=== PATIENT | female | born 1955 | race Caucasian/White ===

== ENCOUNTER 2019-11-07 07:30 | Day surgery (SDC) | payer MEDICAID ==
[~2019-11-07] VITALS: Ht 147.3 cm; Wt 79.4 kg
[2019-11-07] MEDS ORDERED: OXYCODONE/ACETAMINOPHEN 5-325 TABLET PO PRN (10:45)
[2019-11-07] MEDS ORDERED: HYDROcodone/ACETAMIN 5-325 MG TAB (NORCO/ VICODIN) PO PRN (10:45)
[2019-11-07] MEDS ORDERED: IBUPROFEN 800 MG TABLET PO PRN (10:45)
[2019-11-07] MEDS ORDERED: HYDROmorphone 2 MG TAB PO PRN (10:45)
[2019-11-07] MEDS ORDERED: SIMETHICONE 80 MG TAB.CHEW PO PRN (10:45)
[2019-11-07] MEDS ORDERED: ONDANSETRON HCL 4 MG/2 ML VIAL IVP PRN (12:30)
[2019-11-07] MEDS ORDERED: LR 1,000 ML IV.SOLN IV ONE (12:40)
[2019-11-07] MEDS ORDERED: DESFLURANE 15 MIN GAS INH ONE (12:40)
[2019-11-07] MEDS ORDERED: SUCCINYLCHOLINE CHLORIDE 20 MG/ML(QUELICIN) ONE (12:40)
[2019-11-07] MEDS ORDERED: fentaNYL CITRATE 250 MCG/5 ML AMP IV ONE (12:40)
[2019-11-07] MEDS ORDERED: KETOROLAC TROMETHAMINE 30 MG VIAL ONE (12:40)
[2019-11-07] MEDS ORDERED: DEXAMETHASONE SOD PHOSPHATE 4 MG/ML VIAL ONE (12:40)
[2019-11-07] MEDS ORDERED: CEFAZOLIN 2 GM IVPB PREMIX 50 ML IV ONE (12:40)
[2019-11-07] MEDS ORDERED: SUGAMMADEX SODIUM 200 MG/2 ML VIAL IV ONE (12:40)
[2019-11-07] MEDS ORDERED: PROPOFOL 200MG/ 20ML VIAL (DIPRIVAN) IV ONE (12:40)
[2019-11-07] MEDS ORDERED: MIDAZOLAM HCL 5 MG/ML VIAL (VERSED) IV ONE (12:40)
[2019-11-07] MEDS ORDERED: ROCURONIUM BROMIDE 10 MG/ML (ZEMURON) ONE (12:40)
[2019-11-07] MEDS ORDERED: NS IRRIG SOLN 1000 ML IR ONE (12:40)
[2019-11-07] MEDS ORDERED: ONDANSETRON HCL 4 MG/2 ML VIAL ONE (12:40)
[2019-11-07] MEDS ORDERED: BUPIVACAINE /EPINEPHRINE/PF 0.5% 30 ML VIAL INJ ONE (12:40)
[2019-11-07] MEDS: HYDROmorphone 1 MG INJ. 1 MG/ML AMPUL IVP PRN ×3 (12:50→13:30)
[2019-11-07] MEDS: ONDANSETRON HCL 4 MG/2 ML VIAL IVP PRN (13:15)
--- NOTE | 2019-11-07 13:50 | NUR ---
Patient arrived on unit from PACU, received report from RN,
[2019-11-07 13:57] VITALS: BP_SYST 132
--- NOTE | 2019-11-07 15:33 | NUR ---
Round Patient resting in bed. monitoring post op vital signs. no signs of distress noted. patient eyes are close with ease and non-labored. call light within reach, bed in the lowest position. family member is in the room.
[2019-11-07 16:15] VITALS: BP_SYST 123
--- NOTE | 2019-11-07 17:07 | NUR ---
Round Patient resting in bed. patient eyes are close. family members are in the room. no signs of distress noted at this time. call light within reach and position bed in the lowest position. monitor post op vital signs.
--- NOTE | 2019-11-07 18:49 | NUR ---
CLOSING NOTE Patient resting in bed. no signs of distress at this time. family present in the room. patient had a dinner brought to her. no other needs addressed at this time. bed alarm on, bed in the lowest position, and call light within reach, will endorse care to material handler 1st shift. will let them know that duval catheter need to be taken out at 19:30.
[2019-11-07] MEDS: MORPHINE SULFATE 10 MG/ML VIAL IVP PRN (19:59)
[2019-11-07 20:00] VITALS: BP_SYST 118
[2019-11-07] MEDS: DOCUSATE SODIUM 100 MG CAPSULE PO SCH (21:36)
[2019-11-08] MEDS: MORPHINE SULFATE 10 MG/ML VIAL IVP PRN ×3 (01:44→11:26)
--- NOTE | 2019-11-08 07:35 | NUR ---
Opening Note received bedside SBAR report from server assistant RN, patient resting in bed, respirations even and unlabored on room air, patient reports pain is controlled, no acute distress noted, educated patient on use of call light and asked to call for assistance, patient verbalized understanding, call light in reach, bed in low and locked position, bed alarm on.
[2019-11-08 08:00] VITALS: BP_SYST 108
[2019-11-08] MEDS: DOCUSATE SODIUM 100 MG CAPSULE PO SCH (08:57)
--- NOTE | 2019-11-08 09:43 | NUR ---
Nutrition Update Martínez Scale 15 noted. Pt admitted for polyp of cervix uterus. Diet: regular BMI: 36.6 kg/m2 RD to follow per nutrition care standards.
--- NOTE | 2019-11-08 09:50 | NUR ---
RN Rounds patient resting in bed, patient tolerated breakfast well, patient denies any nausea, patient reports pain is controlled at this time.
[2019-11-08] MEDS: ONDANSETRON HCL 4 MG/2 ML VIAL IVP PRN (11:24)
--- NOTE | 2019-11-08 11:57 | NUR ---
Spoke with physician spoke with Dr. Ramírez, informed him that patient is complaining of pain 03/27, informed him that patient was educated on use and side effects of PO pain medications, patient refusing PO pain medications and requesting IV pain medication, patient states "too much pain", per Dr. Ramírez monitor patient for next two hours and see if pain is controlled for discharge home, new orders received, verified with read back. Addendum: 11/08/19 at 1202 by Manuela Man RN edit above note to pain 02/25.
[2019-11-08 12:45] VITALS: BP_SYST 116
--- NOTE | 2019-11-08 12:46 | NUR ---
RN Rounds patient sitting up in bed eating lunch, tolerating well, patient reports nausea is controlled, patient reports pain is controlled at this time, patients at bedside.
[2019-11-08 12:53] VITALS: BP_SYST 116
[2019-11-08] MEDS ORDERED: HYDR-4272 PO (13:01)
[2019-11-08] MEDS ORDERED: IBUP-1971 PO (13:02)
[2019-11-08] MEDS ORDERED: DOCU-144 PO (13:02)
--- NOTE | 2019-11-08 13:43 | NUR ---
Discharge provided patient with discharge packet and instructions, patient verbalized understanding, patients Thanh reports that they were provided with written RX from Dr. Ramírez and that he has taken it to the pharmacy to be filled, IV catheter removed, catheter intact, no bleeding, patient reports pain is controlled at this time, patient states she has "a little pain" but she "is okay", patient denies any nausea, patient ambulated to bathroom, voided x1, minimal assistance required, patient ambulating around room, no acute distress noted, patient accompanied by Thanh for discharge home, all belongings sent with patient, patient taken to parking lot via wheelchair.
== END 2019-11-08 13:43 | disposition home or self-care (01) ==
LOC: SDS 07:30 → SMU 07:30 → SDS 11-08 13:43
PROVIDERS: ATTEND Obstetrics & Gynecology
DX: N81.4 Uterovaginal prolapse, unspecified (principal); I10 Essential (primary) hypertension; I25.10 Atherosclerotic heart disease of native coronary artery without angina pectoris; Z79.899 Other long term (current) drug therapy
CPT/HCPCS: 58570; 88307; C9399; J0330; J0690; J1100; J1885; J2250; J2270 ×2; J2405 ×2; J2704; J3010; J3490; J7120; E0190